=== PATIENT | male | born 1980 | race Caucasian/White ===

== ENCOUNTER → 2020-03-28 | Outpatient (CLI) | payer OTHER | LOC: SLEEP-COR 13:23 | DX: F41.9 Anxiety disorder, unspecified (principal); M19.90 Unspecified osteoarthritis, unspecified site; M54.9 Dorsalgia, unspecified; G89.29 Other chronic pain; F32.9 Major depressive disorder, single episode, unspecified; G47.30 Sleep apnea, unspecified; I10 Essential (primary) hypertension; M25.50 Pain in unspecified joint; G43.909 Migraine, unspecified, not intractable, without status migrainosus; Z79.1 Long term (current) use of non-steroidal anti-inflammatories (NSAID); Z00.00 Encounter for general adult medical examination without abnormal findings | CPT/HCPCS: 95811 ==